=== PATIENT | female | born 1935 | race Asian ===

== ENCOUNTER 2019-03-01 19:32 | Inpatient (IN) | payer OTHER ==
[~2019-03-01] VITALS: Ht 154.9 cm; Wt 67.1 kg
[2019-03-01 19:41] VITALS: Ht 154.9 cm; Wt 67.1 kg
[2019-03-01 20:40] LABS: CALCIUM 8.2 mg/dL (8.5-10.1); CARBON DIOXIDE 23.8 mmol/L (21-32); CHLORIDE SERUM 98 mmol/L (98-107); CREATININE SERUM 0.9 mg/dL (0.6-1.0); GLUCOSE SERUM 138 mg/dL (74-106); POTASSIUM SERUM 4.2 mmol/L (3.5-5.1); SODIUM SERUM 131 mmol/L (136-145)
[2019-03-01 20:45] LABS: ALKALINE PHOSPHATASE 50 U/L (46-116); ALT/SGPT 27 U/L (14-59); AST/SGOT 22 U/L (15-37); BILIRUBIN TOTAL 0.61 mg/dL (0.20-1.00); TOTAL PROTEIN, SERUM 7.2 g/dL (6.4-8.2)
[2019-03-01 20:46] LABS: BASOPHIL % 0.3 % (0-2)
[2019-03-01 20:55] LABS: ALBUMIN 3.1 g/dL (3.4-5.0)
[2019-03-01 20:56] LABS: PLATELET COUNT 122 x10^3mcL (130-400); RED CELL DISTRIBUTION WIDTH 15.9 % (11.5-14.5)
[2019-03-01] MEDS ORDERED: ALBUTEROL0.63 MG/3 NEB (21:48)
[2019-03-01] MEDS ORDERED: LEVOFLOXACIN500 M1 PO (21:48)
[2019-03-01 21:57] LABS: MAGNESIUM 1.8 mg/dL (1.8-2.4)
[2019-03-01 22:52] VITALS: BP 125/57
[2019-03-02] VITALS (7 sets, daily range): BP systolic 111–147; BP diastolic 51–77
[2019-03-02 06:57] LABS: BASOPHIL % 0.1 % (0-2); PLATELET COUNT 132 x10^3mcL (130-400)
[2019-03-02 06:58] LABS: RED CELL DISTRIBUTION WIDTH 15.9 % (11.5-14.5)
[2019-03-02 07:00] LABS: CALCIUM 8.1 mg/dL (8.5-10.1); CARBON DIOXIDE 18.1 mmol/L (21-32); CHLORIDE SERUM 99 mmol/L (98-107); CREATININE SERUM 1.1 mg/dL (0.6-1.0); GLUCOSE SERUM 199 mg/dL (74-106); POTASSIUM SERUM 3.8 mmol/L (3.5-5.1); SODIUM SERUM 134 mmol/L (136-145)
[2019-03-03 06:00] VITALS: BP 94/52
[2019-03-03 06:28] LABS: BASOPHIL % 0.2 % (0-2); PLATELET COUNT 137 x10^3mcL (130-400)
[2019-03-03 06:29] LABS: CALCIUM 8.4 mg/dL (8.5-10.1); CARBON DIOXIDE 22.7 mmol/L (21-32); CHLORIDE SERUM 102 mmol/L (98-107); GLUCOSE SERUM 177 mg/dL (74-106); MAGNESIUM 2.3 mg/dL (1.8-2.4); PHOSPHOROUS 3.3 mg/dL (2.5-4.9); POTASSIUM SERUM 4.6 mmol/L (3.5-5.1); SODIUM SERUM 135 mmol/L (136-145)
[2019-03-03 06:46] LABS: RED CELL DISTRIBUTION WIDTH 15.6 % (11.5-14.5)
[2019-03-03 09:58] VITALS: BP 128/63
[2019-03-03 13:09] VITALS: BP 133/69
[2019-03-03 16:54] VITALS: BP 160/74
[2019-03-03 21:14] VITALS: BP 125/55
[2019-03-04 05:58] VITALS: BP 100/81
[2019-03-04 07:01] LABS: CALCIUM 8.2 mg/dL (8.5-10.1); CARBON DIOXIDE 25.3 mmol/L (21-32); CHLORIDE SERUM 100 mmol/L (98-107); CREATININE SERUM 0.8 mg/dL (0.6-1.0); GLUCOSE SERUM 151 mg/dL (74-106); POTASSIUM SERUM 4.2 mmol/L (3.5-5.1); SODIUM SERUM 135 mmol/L (136-145)
[2019-03-04 08:29] LABS: PLATELET COUNT 141 x10^3mcL (130-400)
[2019-03-04 08:37] LABS: BASOPHIL % 0 % (0-2); RED CELL DISTRIBUTION WIDTH 16.5 % (11.5-14.5)
[2019-03-04 09:03] VITALS: BP 117/66
[2019-03-04 16:36] VITALS: BP 151/75
[2019-03-04 20:58] VITALS: BP 136/72
[2019-03-05 06:03] VITALS: BP 151/89
[2019-03-05 08:58] VITALS: BP 115/60; BP 225/60
[2019-03-05] MEDS ORDERED: LEVAQUIN750 MG PO (10:53)
[2019-03-05] MEDS ORDERED: MUCINEX600 MG PO (10:54)
[2019-03-05] MEDS ORDERED: PREDNISONE10 MG PO (10:56)
[2019-03-05] MEDS ORDERED: BD LACTINEX1.4 MG PO (10:59)
[2019-03-05 11:00] VITALS: BP 141/75
[2019-03-05 12:30] VITALS: BP 141/75
== END 2019-03-05 15:14 | disposition home or self-care (01) | DRG 193 ==
LOC: ED 19:32 → DU 21:21 → MU 21:21 → DU 22:44 → MU 03-03 19:25
PROVIDERS: Emergency Medicine; Family Medicine; ADMIT Internal Medicine
DX: J15.9 Unspecified bacterial pneumonia (principal); J96.20 Acute and chronic respiratory failure, unspecified whether with hypoxia or hypercapnia; J44.1 Chronic obstructive pulmonary disease with (acute) exacerbation; J44.0 Chronic obstructive pulmonary disease with (acute) lower respiratory infection; E22.2 Syndrome of inappropriate secretion of antidiuretic hormone; J20.9 Acute bronchitis, unspecified; E11.9 Type 2 diabetes mellitus without complications; J84.10 Pulmonary fibrosis, unspecified; Z68.27 Body mass index [BMI] 27.0-27.9, adult; Z87.891 Personal history of nicotine dependence; Z99.81 Dependence on supplemental oxygen
CPT/HCPCS: 82962; 83880; 87804; 94150; 97110-GP; 97116-GP; 97530-GP; J0456; J0696; J1815; J1956; J2920; J2930; J3535; J7030; J7050; J7613; J7620; J7644; Q0092